=== PATIENT | male | born 1955 | race Caucasian/White ===

== ENCOUNTER → 2017-05-21 | Outpatient (CLI) | payer BC, OTHER | LOC: OD 09:30 | PROVIDERS: ATTEND Urology | DX: N40.0 Benign prostatic hyperplasia without lower urinary tract symptoms (principal) | CPT/HCPCS: 36415; 84153 ==

== ENCOUNTER 2017-07-28 06:53 | Day surgery (SDC) | payer BC, OTHER ==
[2017-07-28] MEDS ORDERED: NALOXONE HCL INJ/PF 0.4 MG/1 ML SDV ONE (07:24)
[2017-07-28] MEDS ORDERED: ONDANSETRON HCL INJ/PF 4 MG/2 ML SDV ONE (07:24)
[2017-07-28] MEDS ORDERED: FLUMAZENIL INJ 0.5 MG/5 ML VIAL ONE (07:25)
[2017-07-28] MEDS ORDERED: GLUCAGON,HUMAN RECOMB 1 MG INJ ONE (07:25)
[2017-07-28] MEDS ORDERED: EPINEPHRINE INJ 1 MG/10 ML DISP.SYRIN ONE (07:25)
[2017-07-28 07:41] LABS: HEMATOCRIT 41.7 % (37.9-51.0); HEMOGLOBIN 14.1 g/dL (13.5-17.0); MEAN CORPUSCULAR HEMOGLOBIN 30.2 pg (27.0-33.4); MEAN CORPUSCULAR HGB CONC 33.7 g/dL (32.0-36.0); MEAN CORPUSCULAR VOLUME 89 fl (80-97); PLATELET COUNT 114 10^3/uL (150-450); RED BLOOD COUNT 4.66 10^6/uL (4.35-5.55); RED CELL DISTRIBUTION WIDTH 12.6 % (11.5-14.0)
[2017-07-28] MEDS: MIDAZOLAM 2 MG/2 ML INJ ONE ×2 (08:50→08:58)
[2017-07-28] MEDS: FENTANYL CITRATE INJ/PF 100 MCG/2 ML AMPUL ONE ×2 (08:52→08:54)
--- NOTE | 2017-07-28 09:28 | Operative Report ---
Operative Report DATE OF SURGERY: 07/28/17 PREOPERATIVE DIAGNOSIS: History of colon polyp POSTOPERATIVE DIAGNOSIS: History of colon polyp. Diverticulosis. OPERATION: Colonoscopy SURGEON: FRANCIE MEHTA ANESTHESIA: Moderate Sedation TISSUE REMOVED OR ALTERED: None COMPLICATIONS: None ESTIMATED BLOOD LOSS: None INTRAOPERATIVE FINDINGS: Scattered diverticuli. Very thin sticky film on the colon. PROCEDURE: Informed consent was obtained. Patient was brought to the endoscopy suite. IV sedation with Versed and fentanyl was administered. Digital rectal exam revealed no palpable perianal masses. Endoscope was passed via the patient's anus it was fed to the cecum. The bowel prep was fair with very sticky film covering the proximal colon that would not wash off with irrigation. But it was lucent enough to see through it. Small polyps could have been missed due to this debris however I do not think I missed any large masses. The right colon and cecum appeared normal. Transverse colon has scattered rare diverticuli. As did the descending colon and sigmoid colon. Otherwise the colon appeared normal. Rectum appeared normal. Patient tolerated procedure well with no apparent complications and was taken to the recovery area in stable condition. History of colon polyp. In light of the imperfect bowel prep I do recommend repeat colonoscopy in 3 years rather than 5. Sooner if he has any concerning symptoms. I did feel that I had an adequate look of the colon albeit imperfect due to the sticky debris.
--- NOTE | 2017-07-28 09:30 | PDOC DISCHARGE SUMMARY ---
Discharge Summary (SDC) - Discharge Final Diagnosis: History of colon polyp Date of Surgery: 07/28/17 Discharge Date: 07/28/17 Condition: Good Treatment or Instructions: Underwent colonoscopy. October discharge patient home when met discharge criteria. Follow-up with me in 2 weeks. Referrals: FOUZIA CARRASCO FNP [Primary Care Provider] - Discharge Diet: As Tolerated Discharge Activity: Activity As Tolerated Report the Following to Your Physician Immediately: Increase in Pain, Fever over 101 Degrees, Unusual Bleeding
[2017-07-28 13:02] VITALS: BP 124/79
== END 2017-07-28 10:10 | disposition home or self-care (01) ==
LOC: END 06:53
PROVIDERS: ATTEND Surgery
PROC: 0DJD8ZZ Inspection of Lower Intestinal Tract, Via Natural or Artificial Opening Endoscopic (ICD-10-PCS; principal; 2017-07-28 08:30)
DX: Z12.11 Encounter for screening for malignant neoplasm of colon (principal); K57.30 Diverticulosis of large intestine without perforation or abscess without bleeding; C91.10 Chronic lymphocytic leukemia of B-cell type not having achieved remission; E03.9 Hypothyroidism, unspecified; Z86.010 Personal history of colon polyps; Z79.84 Long term (current) use of oral hypoglycemic drugs; Z79.899 Other long term (current) drug therapy
CPT/HCPCS: 45378; 36415; 82962; 85027; J2250; J3010; J0171; J1610; J2310; J2405; J3490

== ENCOUNTER → 2020-06-06 | Outpatient (CLI) | payer MEDICARE, BC, OTHER ==
[2020-06-06 17:19] LABS: BLOOD UREA NITROGEN 27 mg/dL (7-20)
== END ==
LOC: OD 16:29
PROVIDERS: ATTEND Nurse Practitioner
DX: N40.1 Benign prostatic hyperplasia with lower urinary tract symptoms (principal); N13.8 Other obstructive and reflux uropathy
CPT/HCPCS: 36415; 82565; 84520